=== PATIENT | male | born 1980 | race Caucasian/White ===

== ENCOUNTER 2017-01-16 00:54 | Emergency (ER) | payer OTHER ==
[2017-01-16 01:17] VITALS: BP 136/87
--- NOTE | 2017-01-16 01:56 | EDM.PDOC ---
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 No other injuries] Review of systems: As per history of present illness and below otherwise all systems reviewed and negative. Past medical history: As per history of present illness and as reviewed below otherwise noncontributory. Surgical history: As per history of present illness and as reviewed below otherwise noncontributory. Social history: No reported history of drug or alcohol abuse. Family history: As per history of present illness and as reviewed below otherwise noncontributory. Physical exam: HEENT: Atraumatic, normocephalic, pupils reactive, negative for conjunctival pallor or scleral icterus, mucous membranes moist, throat clear, neck supple, nontender, trachea midline. Lungs: Clear to auscultation, breath sounds equal bilaterally, Heart: S1S2, regular, Abdomen: Soft Extremities: Palpation of his left elbow does cause discomfort at the lower process there is no erythema or swelling or deformity or break in skin. He has full range of motion without crepitations.. Neuro: Awake, alert, oriented. Cranial nerves II through XII unremarkable. Cerebellum unremarkable. Motor and sensory unremarkable throughout. Exam nonfocal. Diagnostics: [X-rays of the elbow do not reveal any fractures and I am appreciating or overt or occult] Therapeutics: [Providing him a sling excuse for couple of days] Impression: [Contusion left] Plan: [TT use [id number] pain meds and is in return to work in a couple of days] Definitive disposition and diagnosis as appropriate pending reevaluation and review of above. 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 Trauma Exam - Physical Exam Exam: See Below Course - Vital Signs Last Recorded V/S: Last Vital Signs Temp 36.9 C 01/16/17 01:15 Pulse 90 01/16/17 01:15 Resp 20 01/16/17 01:15 BP 136/87 01/16/17 01:15 Pulse Ox 97 01/16/17 01:15 - Orders/Labs/Meds Orders: Active Orders 24 hr Category Date Time Status Elbow Min 3V Lt [CR] Stat Exams 01/16/17 00:56 Taken Departure - Departure Time of Disposition: 01:54 Disposition: Home, Self-Care 01 Condition: good Clinical Impression: Contusion of left elbow Qualifiers: Encounter type: initial encounter Qualified Code(s): S50.02XA - Contusion of left elbow, initial encounter Forms: ED Department Discharge Additional Instructions: Please followup with your doctor in 2 weeks if you are not doing much better. You can use [id number] Tylenol Advil or Naprosyn for pain ice it and use a sling for comfort but to take your arm out of the sling several times a day and put through a range of motion so that you do not have trouble with a frozen elbow joint - My Orders Last 24 Hours: My Active Orders 01/16/17 00:56 Elbow Min 3V Lt [CR] Stat - Assessment/Plan Last 24 Hours: My Active Orders 01/16/17 00:56 Elbow Min 3V Lt [CR] Stat
--- NOTE | 2017-01-16 09:54 | CR ---
No fracture or dislocation.
== END 2017-01-16 02:05 | disposition home or self-care (01) ==
LOC: JP.ED 00:54
DX: S50.02XA Contusion of left elbow, initial encounter (principal); F17.210 Nicotine dependence, cigarettes, uncomplicated; W01.0XXA Fall on same level from slipping, tripping and stumbling without subsequent striking against object, initial encounter
CPT/HCPCS: 73080-26-LT; 73080-LT; 99284